=== PATIENT | male | born 1985 | race Caucasian/White ===

== ENCOUNTER → 2017-09-23 | Day surgery (SDC) | payer OTHER ==
[~2017-09-23] MED LIST: DEXAMETHASONE SOD PHOS INJ 4 MG/ML VIAL ONE; FENTANYL CITRATE/PF 100MCG/2 ML INJ ONE; GENTAMICIN 120MG/NS 100ML 100 ML ONE; IOPAMIDOL 610MG/1ML 300 MG/ML VIAL IV ONE; LEVAQUIN750 MG PO; LIDOCAINE HCL 2% LOCAL INJ 5 ML SDV VIAL INJ ONE; ONDANSETRON HCL INJ 2 MG/ML VIAL ONE; PREDNISOLONE SO10 ML OU; PROPOFOL IV EMULSION 10 MG/ML 20 ML VIAL ONE; SEVOFLURANE INHAL SOLN 250 ML PEN BTL ONE
--- OUTSIDE RECORDS SUMMARY | 2017-09-23 11:52 | XMS REPORT | Clinical Summary ---
Author Author [facility] Organization [facility] Address Unknown Phone Unavailable Care Team Providers Care Transplant Nurse Practitioner Name Role Phone Asked, Pcp PCP Unavailable Allergies Active Allergy Reactions Severity Noted Date Comments Codeine Swelling High 07/08/2016 Of the throat. Current Medications Prescription Sig. Disp. Refills Start End Date Status Date baclofen (LIORESAL) 10 MG 07/07/20 Active tablet 16 cyclobenzaprine 07/03/20 Active (FLEXERIL) 10 mg tablet 16 prednisoLONE acetate INSTILL 1 DROP IN RIGHT 0 04/28/20 Active (PRED FORTE) 1 % EYE FOUR TIMES A DAY 16 ophthalmic suspension traMADol (ULTRAM) 50 mg 07/03/20 Active tablet 16 meloxicam (MOBIC) 7.5 mg Take 7.5 mg by mouth 2 0 05/25/20 Active tablet (two) times a day. for 10 17 days cyclopentolate (CYCLOGYL) INSTILL 1 DROP IN LEFT 1 07/06/20 Active 1 % ophthalmic solution EYE EVERY 2 HOURS FOR 2 17 DAYS, THEN 4 TIMES A DAY meloxicam (MOBIC) 15 mg Take 1 tablet (15 mg 30 tablet 2 08/19/19 Discontin tablet total) by mouth daily. 17 17 ued Take with food. meloxicam (MOBIC) 15 mg TAKE 1 TABLET BY MOUTH 30 tablet 2 11/25/19 06/09/20 Discontin tablet DAILY. TAKE WITH FOOD. 17 17 ued predniSONE (DELTASONE) 20 Take 2 tablets by mouth 15 tablet 0 04/24/20 mg tablet daily for 5 days then 1 17 17 tablet by mouth for 5 days. Active Problems Problem Noted Date Iliotibial band syndrome of right side 09/01/2017 Iliotibial band syndrome of left side 09/01/2017 Encounters Date Type Specialty Care Team Description 09/01/2017 Office Visit Sports Esteban Alfredo MD Iliotibial band syndrome of right side (Primary Dx); Iliotibial band syndrome of left side 06/30/2017 Office Visit Sports Esteban Alfredo MD Iliotibial band syndrome of right side (Primary Dx) 06/24/2017 Telephone Sports Medicine Carlyn Weinberg MA 06/23/2017 Procedure Pass Radiology 06/23/2017 Orders Only Sports Medicine Carlyn Weinberg MA Tear of medial meniscus of right knee, unspecified tear type, unspecified whether old or current tear, subsequent encounter (Primary Dx) 06/22/2017 Hospital Radiology Richard Philippe, Testicular pain , right Encounter 06/09/2017 Office Visit Sports Esteban Alfredo MD Right knee pain, unspecified chronicity (Primary Dx) 05/25/2017 Transcribe Access Richard Philippe, Testicular pain, right Orders (Primary Dx) 04/14/2017 Office Visit Sports Esteban Alfredo MD Lumbar sprain, initial encounter (Primary Dx) 11/22/2016 Refill Sports Esteban Alfredo MD after 09/22/2016 Family History Medical History Relation Name Comments No Known Problems Father No Known Problems Mother Relation Name Status Comments Father Mother Social History Tobacco Use Types Packs/Day Years Used Date Former Smoker Cigarettes 1 8 Quit: 07/08/2014 Smokeless Tobacco: Never Used Alcohol Use Drinks/Week oz/Week Comments Yes 5 Standard 3.0 per month drinks or equivalent Sex Assigned at Date Recorded Not on file Last Filed Vital Signs Vital Sign Reading Time Taken Blood Pressure - - Pulse - - Temperature - - Respiratory Rate - - Oxygen Saturation - - Inhaled Oxygen - - Concentration Weight 74.8 kg (165 lb) 06/23/2017 2:24 PM COMPUTER DRAFTER Height - - Body Mass Index - - Plan of Treatment Health Maintenance Due Date Last Done Comments INFLUENZA VACCINE 03/03/2017 Results * MRI Knee Right Wo Contrast (06/23/2017 3:01 PM) Specimen Performing Laboratory [facility] [address] [place] [address] Narrative MRI KNEE WO CONTRAST RIGHT CLINICAL INDICATION:S83.241D Other tear of medial meniscuscurrent injury right kneesubsequent encounter, JOINT PAINKNEE TECHNIQUE:Multiplanar multisequence MR imaging of the right knee was performed without gadolinium contrast. COMPARISON:None. FINDINGS: Cruciate ligaments:Intact Menisci:There is intrasubstance signal involving the posterior horn the medial meniscus without associated tear identified. There is, however, a lobulated 8 x 4 x 15 mm lesion posterior to the medial meniscal root, potentially parameniscal cyst versus ganglion. Collateral ligaments:Intact Bone marrow:Mild patchy edema noted in the anterior lateral femoral condyle. Articular cartilage:Femorotibial articular cartilage is unremarkable. Effusion:Minimal joint fluid. Extensor mechanism:Quadriceps and patellar tendons are unremarkable. Retinacula are intact. Soft tissues:No significant edema or strain. No periarticular tendinopathy. IMPRESSION: Indeterminate lobulated cyst in the posterior medial joint, potentially ganglion or parameniscal cyst but without distinct medial meniscal tear identified on MR. Thank you for allowing us to participate in the care of your patient. [facility]-[id number] Procedure Note Interface, Radiology Results Incoming - 06/23/2017 3:10 PM COMPUTER DRAFTER MRI KNEE WO CONTRAST RIGHT CLINICAL INDICATION: S83.241D Other tear of medial meniscus current injury right knee subsequent encounter, JOINT PAIN KNEE TECHNIQUE: Multiplanar multisequence MR imaging of the right knee was performed without gadolinium contrast. COMPARISON: None. FINDINGS: Cruciate ligaments: Intact Menisci: There is intrasubstance signal involving the posterior horn the medial meniscus without associated tear identified. There is, however, a lobulated 8 x 4 x 15 mm lesion posterior to the medial meniscal root, potentially parameniscal cyst versus ganglion. Collateral ligaments: Intact Bone marrow: Mild patchy edema noted in the anterior lateral femoral condyle. Articular cartilage: Femorotibial articular cartilage is unremarkable. Effusion: Minimal joint fluid. Extensor mechanism: Quadriceps and patellar tendons are unremarkable. Retinacula are intact. Soft tissues: No significant edema or strain. No periarticular tendinopathy. IMPRESSION: Indeterminate lobulated cyst in the posterior medial joint, potentially ganglion or parameniscal cyst but without distinct medial meniscal tear identified on MR. Thank you for allowing us to participate in the care of your patient. [facility]-[id number] * US Scrotal (06/22/2017 6:08 PM) Specimen Performing Laboratory [facility] [address] [place] [id number] Narrative EXAMINATION: Testicular ultrasound. CLINICAL HISTORY:N50.811 Right testicular pain, N50.8 COMPARISON:None. TECHNIQUE:Sonographic evaluation of the scrotum. Real-time B mode grayscale , Doppler spectral analysis and Doppler color flow imaging was used to assess testicular vasculature. FINDINGS: RIGHT HEMISCROTUM: The right testicle measures 4.9 x 3.3 x 2.8 cm. Testicular echogenicity is normal. No intratesticular masses are identified. There is normal color and duplex Doppler flow. The right epididymis is unremarkable. There is no evidence of varicocele. There is a right testicular hydrocele. The right epididymis measures 1.1 x 1.2 x 0.9 cm. LEFT HEMISCROTUM: The left testicle measures 4.6 x 3.2 x 2.7 cm.. Testicular echogenicity is normal. No intratesticular masses are identified. There is normal color and duplex Doppler flow. The left epididymis is unremarkable. There is no evidence of varicocele. There is a left testicular hydrocele. The left epididymis measures 1.0 x 1.0 x 1.1 cm. Doppler blood flow is present in both testicles. IMPRESSION: There is good blood flow in both testicles. There are bilateral hydroceles. The right testicle is mildly hyperemic compared to the left. [id number] Procedure Note Hm Interface, Radiology Results Incoming - 06/22/2017 6:50 PM COMPUTER DRAFTER EXAMINATION: Testicular ultrasound. CLINICAL HISTORY: N50.811 Right testicular pain, N50.8 COMPARISON: None. TECHNIQUE: Sonographic evaluation of the scrotum. Real-time B mode grayscale, Doppler spectral analysis and Doppler color flow imaging was used to assess testicular vasculature. FINDINGS: RIGHT HEMISCROTUM: The right testicle measures 4.9 x 3.3 x 2.8 cm. Testicular echogenicity is normal. No intratesticular masses are identified. There is normal color and duplex Doppler flow. The right epididymis is unremarkable. There is no evidence of varicocele. There is a right testicular hydrocele. The right epididymis measures 1.1 x 1.2 x 0.9 cm. LEFT HEMISCROTUM: The left testicle measures 4.6 x 3.2 x 2.7 cm.. Testicular echogenicity is normal. No intratesticular masses are identified. There is normal color and duplex Doppler flow. The left epididymis is unremarkable. There is no evidence of varicocele. There is a left testicular hydrocele. The left epididymis measures 1.0 x 1.0 x 1.1 cm. Doppler blood flow is present in both testicles. IMPRESSION: There is good blood flow in both testicles. There are bilateral hydroceles. The right testicle is mildly hyperemic compared to the left. [id number] * XR Knee 4+ Vw Right (06/09/2017 11:49 AM) Specimen Performing Laboratory [facility] [address] [place] [address] Impressions Negative knee. Narrative FINDINGS: AP, lateral, tunnel, and sunrise views were obtained of the right knee. The bones are intact and normally located. There is no effusion. The bones, joints, and soft tissues appear normal. after 09/22/2016 Insurance Payer Benefit Subscriber ID Type Phone Address Plan / Group [facility] xxxxxxxxx HMO/PPO THCARE CHOICE/CHO ICE +
[2017-09-23 13:00] LABS: BASOPHILS # (AUTO) 0.1 (0.0-0.1); BASOPHILS % 0.8 % (0.0-1.0); EOSINOPHILS # (AUTO) 0.4 (0.0-0.4); EOSINOPHILS % 5.3 % (0.0-6.0); HEMATOCRIT 44.1 % (38.2-49.6); HEMOGLOBIN 15.3 g/dL (14.0-18.0); LYMPHOCYTES # (AUTO) 1.6 (1.0-3.2); LYMPHOCYTES % 23.7 % (18.0-39.1); MEAN CORPUSCULAR HEMOGLOBIN 30.1 pg (28-32); MEAN CORPUSCULAR HGB CONC 34.7 g/dL (31-35); MEAN CORPUSCULAR VOLUME 86.8 fL (81-99); MONOCYTES # (AUTO) 0.7 (0.2-0.8); MONOCYTES % 10.2 % (4.4-11.3); NEUTROPHILS # (AUTO) 3.9 (2.1-6.9); NEUTROPHILS % 59.8 % (38.7-80.0); PLATELET COUNT 178 x10e3/uL (140-360); RED BLOOD COUNT 5.08 x10e6/uL (4.3-5.7); RED CELL DISTRIBUTION WIDTH 12.2 % (11.7-14.4)
[2017-09-23 13:12] LABS: INR 1.08; PARTIAL THROMBOPLASTIN TIME 25.8 seconds (23.8-35.5); PROTHROMBIN TIME 13.2 seconds (11.9-14.5)
[2017-09-23 13:23] LABS: ANION GAP 13.1 mmol/L (8-16); BLOOD UREA NITROGEN 17 mg/dL (7-26); BUN/CREATININE RATIO 16 (6-25); CALCIUM 9.3 mg/dL (8.4-10.2); CARBON DIOXIDE 27 mmol/L (22-29); CHLORIDE 105 mmol/L (98-107); CREATININE, SERUM 1.06 mg/dL (0.72-1.25); EST GLOMERULAR FILTRATION RATE > 60 ML/MIN (60-); GLUCOSE 86 mg/dL (74-118); POTASSIUM 4.1 mmol/L (3.5-5.1); SODIUM 141 mmol/L (136-145)
--- NOTE | 2017-09-23 14:39 | Operative Report ---
DATE OF PROCEDURE: September 23, 2017 PREOPERATIVE DIAGNOSIS 1. Chronic prostatitis. 2. Recurrent prostatitis. 3. Recurrent left testicular pain. POSTOPERATIVE DIAGNOSIS 1. Chronic prostatitis. 2. Recurrent prostatitis. 3. Recurrent left testicular pain. 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 OPERATION: Cystourethroscopy and bilateral retrograde pyelograms. MEDICAL INTERN: Dr. Rowland. ANESTHETIC: General. Tyler is a 31-year-old male who presented with a chief complaint of recurrent urinary tract infections with what appeared to be chronic prostatitis with left-sided back pain, left lower quadrant pain and left testicular pain. He has been on several antibiotics and continued to have the same symptoms. This patient was placed on the table in the lithotomy position and was prepped and draped in a sterile manner after satisfactory anesthesia. A number 23-Jordanian cystoscope was used, and cystourethroscopy was performed and it was noted that the urethra was normal. The prostatic urethra was about 3 cm long, partially occlusive, bilobar and congested. Cystoscopy was then performed using both right-angle and the Foroblique lens, and it was noted that the bladder mucosa was normal. The right ureteral orifice was normal. The left side showed complete duplication with 2 ureteral orifices. Left retrograde pyelogram, catheterizing each ureter separately, and he had complete duplication with possible communication between one and the other lower ureters because some of the contrast material effluxed as I was injecting one ureter from the other. Patient tolerated the procedure well after the bladder was drained and the cystoscope was removed. Plans for this patient are to continue on the Levaquin 500 mg once a day for 4 more weeks. Ultracet tablet 1 every 6 hours p.r.n. and was given 20. He is to return to the office in 4 weeks. Job#: [id number] EV
== END | disposition home or self-care (01) ==
LOC: OR 11:50
PROVIDERS: ATTEND Specialist
DX: N41.1 Chronic prostatitis (principal); Q62.5 Duplication of ureter
CPT/HCPCS: 36415; 52005; 74420; 80048; 85025; 85610; 85730; J1100; J1580; J2001; J2405; Q9967